=== PATIENT | female | born 1985 | race Caucasian/White ===

== ENCOUNTER 2016-08-08 16:34 | Emergency (ER) | payer OTHER ==
[~2016-08-08] VITALS: Ht 160 cm; Wt 65.8 kg
[2016-08-08] MEDS ORDERED: [UNRECOGNIZED DRUG - CODE] PO (16:55)
[2016-08-08] MEDS ORDERED: CIPR500S3 PO (16:55)
[2016-08-08] MEDS ORDERED: CLON0.252 PO (16:55)
--- NOTE | 2016-08-08 17:10 | NUR ---
dr butcher at the bedside for eval and exam.
[2016-08-08] MEDS ORDERED: CLINDAMYCIN HCL 150 MG CAPSULE PO ONE (17:15)
[2016-08-08] MEDS ORDERED: MUPIROCIN 2% OINT 22 GM TUBE TP ONE (17:15)
[2016-08-08] MEDS ORDERED: MUPIROCIN 2% OINT 22 GM TUBE ONE (17:35)
[2016-08-08] MEDS ORDERED: CLINDAMYCIN HCL 300 MG CAPSULE ONE (17:35)
[2016-08-08 17:49] VITALS: BP 114/64
--- NOTE | 2016-08-08 17:49 | NUR ---
Patient discharged to home in stable conditon. Written and verbal after care instructions given. Patient verbalizes understanding of instructions.
== END 2016-08-08 17:52 | disposition home or self-care (01) ==
LOC: ER 16:34
DX: T22.211A Burn of second degree of right forearm, initial encounter (principal); Z88.0 Allergy status to penicillin; Z88.2 Allergy status to sulfonamides; Z88.8 Allergy status to other drugs, medicaments and biological substances; X08.8XXA Exposure to other specified smoke, fire and flames, initial encounter; Y93.89 Activity, other specified; Y99.8 Other external cause status; Y92.89 Other specified places as the place of occurrence of the external cause
CPT/HCPCS: 99283; A4663